=== PATIENT | female | born 1965 | race Caucasian/White ===

== ENCOUNTER 2021-03-20 16:14 | Inpatient (IN) | payer BC, SELFPAY ==
[2021-03-20] VITALS (11 sets, daily range): BP systolic 109–162; BP diastolic 63–99; PULSE 85–103; RESP 14–18; TEMP 37.2–37.8; O2SAT 93–99; BMI 41.0
--- NOTE | 2021-03-20 17:15 | ED_ITS ---
HPI - Skin/Abscess/Foreign Bdy General Chief complaint: Skin/Abscess/Foreign Body Stated complaint: RT SIDE SWELLING LYMPH NODES BREAST CANCER FEVER Time Seen by Provider: 03/20/21 17:15 Source: patient Mode of arrival: Ambulatory Limitations: no limitations History of Present Illness HPI narrative: Patient is a 55-year-old female. Has a history of breast cancer. Is in remission and is not currently receiving any treatment. She has had a bilateral mastectomy hand axillary lymph node biopsy. She comes emergency department today for complaints of swelling in her right arm, redness and tenderness to her forearm. Also having subjective fevers. No chest pain. No shortness of breath. No specific trauma. Related Data Allergies Allergy/AdvReac Type Severity Reaction Status Date / Time latex AdvReac Verified 03/20/21 17:29 Review of Systems Constitutional Constitutional: Reports fever(s) and Reports headache(s) ENT Ears, Nose, Mouth, and Throat: Reports headache(s) Cardiovascular Cardiovascular: Reports system reviewed and no additional complaints, except as documented Respiratory Respiratory: Reports system reviewed and no additional complaints, except as documented Gastrointestinal Gastrointestinal: Reports system reviewed and no additional complaints, except as documented Musculoskeletal Musculoskeletal: Reports system reviewed and no additional complaints, except as documented and Reports as per HPI Integumentary/Breasts Skin/Breast: Reports system reviewed and no additional complaints, except as documented and Reports as per HPI Neurologic Neurologic: Reports system reviewed and no additional complaints, except as documented and Reports headache(s) Psychiatric Psychiatric: Reports system reviewed and no additional complaints, except as documented Hematologic/Lymphatic On Anticoagulants: No Allergic/Immunologic Allergic/Immunologic: Reports system reviewed and no additional complaints, except as documented Patient History Medical History Breast cancer alcohol intake frequency: holidays/special occasions only Substance Use Type: marijuana Exam Initial Vital Signs Initial Vital Signs: Vital Signs Temperature 100.1 F H 03/20/21 17:01 Pulse Rate 101 H 03/20/21 17:01 Respiratory Rate 14 03/20/21 17:01 Blood Pressure 129/89 03/20/21 17:01 Pulse Oximetry 99 03/20/21 17:01 Const General: cooperative, healthy appearing, comfortable and well developed Limitations: mental status not altered HENMT Head: normal to inspection and normocephalic Chest Other: Breast implants in place. Resp Effort & Inspection: normal respiratory effort Auscultation: clear to auscultation bilaterally Cardio Rate: regular rate Rhythm: regular rhythm GI Inspection: non-distended Palpation: soft and No tender Skin Other: Patient with a large area of redness and warmth to the right forearm on the volar aspect. Located between the wrist and the elbow. Also with streaking going up the inside of the right bicep. Also warmth. No vesicles seen. 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) Stat 03/20/21 17:19 XR chest 1V Stat 03/20/21 17:24 Urinalysis and Microscopic Stat Urine Culture Stat Sodium Chloride (Normal Saline 0.9%) 1,000 mls @ 125 mls/hr IV CONT ANALIA Last Admin: 03/20/21 17:43 Dose: 125 mls/hr Documented by: JENNIFER Discontinued Medications Acetaminophen (Acetaminophen 325 Mg Tablet) 650 mg PO NOW ONE Stop: 03/20/21 18:02 Last Admin: 03/20/21 18:15 Dose: 650 mg Documented by: SIOBHAN Ceftriaxone Sodium 1,000 mg/ (Sodium Chloride) 100 mls @ 200 mls/hr IV NOW ONE Stop: 03/20/21 17:18 Last Infusion: 03/20/21 18:13 Dose: 0 mls/hr Documented by: Admin: 03/20/21 17:43 Dose: 200 mls/hr Documented by: JENNIFER Vancomycin HCl (Vancomycin) 1,000 mg in 200 mls @ 200 mls/hr IV NOW ONE Stop: 03/20/21 18:16 Last Admin: 03/20/21 18:22 Dose: 200 mls/hr Documented by: SIOBHAN Ondansetron HCl (Ondansetron 4 Mg/2 Ml Inj) 4 mg IV NOW ONE Stop: 03/20/21 18:02 Last Admin: 03/20/21 18:15 Dose: 4 mg Documented by: ATAYLOR Vital Signs Vital signs: Vital Signs - 8 hr 03/20/21 17:01 Temperature 100.1 F H Pulse Rate 101 H Respiratory Rate 14 Blood Pressure 129/89 Pulse Oximetry 99 MDM - Skin/Abscess/Foreign Bdy Lab Data Attestation: I reviewed the patient's lab results. Result diagrams: 03/20/21 16:42 03/20/21 16:42 Labs: Lab Results 03/20/21 03/20/21 03/20/21 Range/Units 16:42 16:42 16:42 WBC 11.5 H (4.5-11.0) X10^3/uL RBC 4.86 (4.0-5.2) X10^6/uL Hgb 13.9 (12.0-16.0) g/dL Hct 41.8 (36-46) % MCV 86.1 (80-100) fL MCH 28.7 (26-34) PG MCHC 33.3 (30-36) % RDW 13.2 (11.6-14.8) % Plt Count 172 (150-400) X10^3/uL Neut % (Auto) 90.9 H (50-75) % Lymph % (Auto) 4.8 L (25-40) % [place] % (Auto) 3.7 (3-14) % Eos % (Auto) 0.2 L (2-4) % Baso % (Auto) 0.4 (0-2) % Neut # (Auto) 36629 H (2114-8379) /uL Lymph # (Auto) 600 L (4365-3283) /uL [place] # (Auto) 400 (0-900) /uL Eos # (Auto) 0 (0-450) /uL Baso # (Auto) 0 (0-100) /uL Sodium 139 (137-145) mmol/L Potassium 4.2 (3.4-5.1) mmol/L Chloride 104 (98-107) mmol/L Carbon Dioxide 27 (22-32) mmol/L BUN 14 (7-17) mg/dL Creatinine 0.60 (0.52-1.04) mg/dL Estimated GFR > 60.0 (>60) mL/min BUN/Creatinine Ratio 23.3 H (6-22) Glucose 105 H (70-100) mg/dL Lactate 1.3 (0.7-2.1) mmol/L Calcium 9.5 (8.4-10.2) mg/dL Urine Color Urine Appearance Urine pH (4.5-8.0) Ur Specific [place] (1.000-1.035) Urine Protein (Negative) Urine Glucose (UA) (Negative) g/dL Urine Ketones (NEGATIVE) Urine Occult Blood (Negative) Urine Nitrate (Negative) Urine Bilirubin (NEGATIVE) Urine Urobilinogen (0.2) E.U./dL Ur Leukocyte Esterase (NEGATIVE) Urine RBC (0-5/HPF) Urine WBC (0-5/HPF) Ur Squamous Epith Cells (0-5/HPF) Urine Bacteria (None) Urine Mucus (Negative) Ur Culture Indicated? 03/20/21 Range/Units 17:24 WBC (4.5-11.0) X10^3/uL RBC (4.0-5.2) X10^6/uL Hgb (12.0-16.0) g/dL Hct (36-46) % MCV (80-100) fL MCH (26-34) PG MCHC (30-36) % RDW (11.6-14.8) % Plt Count (150-400) X10^3/uL Neut % (Auto) (50-75) % Lymph % (Auto) (25-40) % [place] % (Auto) (3-14) % Eos % (Auto) (2-4) % Baso % (Auto) (0-2) % Neut # (Auto) (0532-5552) /uL Lymph # (Auto) (8931-4144) /uL [place] # (Auto) (0-900) /uL Eos # (Auto) (0-450) /uL Baso # (Auto) (0-100) /uL Sodium (137-145) mmol/L Potassium (3.4-5.1) mmol/L Chloride (98-107) mmol/L Carbon Dioxide (22-32) mmol/L BUN (7-17) mg/dL Creatinine (0.52-1.04) mg/dL Estimated GFR (>60) mL/min BUN/Creatinine Ratio (6-22) Glucose (70-100) mg/dL Lactate (0.7-2.1) mmol/L Calcium (8.4-10.2) mg/dL Urine Color Yellow Urine Appearance Slightly cloudy Urine pH 7.0 (4.5-8.0) Ur Specific [place] 1.020 (1.000-1.035) Urine Protein Trace H (Negative) Urine Glucose (UA) Negative (Negative) g/dL Urine Ketones Negative (NEGATIVE) Urine Occult Blood 1+ H (Negative) Urine Nitrate Negative (Negative) Urine Bilirubin Negative (NEGATIVE) Urine Urobilinogen 0.2 (0.2) E.U./dL Ur Leukocyte Esterase Trace H (NEGATIVE) Urine RBC 1-5/hpf (0-5/HPF) Urine WBC 10-30/hpf H (0-5/HPF) Ur Squamous Epith Cells 0-1 /hpf (0-5/HPF) Urine Bacteria Occasional (0-1) (None) Urine Mucus 1+ H (Negative) Ur Culture Indicated? Culture not indicate Imaging Data Chest x-ray: Radiologist's Impression: [address] [address] XRay Report Signed Patient: Noemi Betts MR#: [id number] : 1965 Acct:[id number] Age/Sex: 55 / F Date of Service: 03/20/21 Loc: ED Accession Number: [id number] ?? Procedure: XR chest 1V Ordering Provider: Mookie Santiago D.O. PROCEDURE:? XR CHEST 1V ? INDICATIONS:? Eval for pneumonia ? TECHNIQUE:? One view of the chest was acquired.? ? COMPARISON:? None. ? FINDINGS:? ? Surgical changes and devices:? Bilateral axillary clips are seen. ? Lungs and pleura:? An incomplete inspiratory result is noted, causing a crowded appearance to the lung markings.? No focal infiltrates are seen.? No pneumothorax or significant pleural effusions are seen. ? ? Mediastinum:? Mediastinal contours appear normal.? Heart size is normal.? ? Bones and chest wall:? No suspicious bony lesions.? Overlying soft tissues appear unremarkable.? ? ? IMPRESSION:? ? Limited portable chest examination, without a significant cardiopulmonary abnormality identified.? ? ? Dictated by: Thierry Koehler M.D. on 03/20/2021 at 16:49 ? ? Approved by: Thierry Koehler M.D. on 03/20/2021 at 16:49?? MDM Narrative Medical decision making narrative: Patient does have tachycardia. A slight leukocytosis with a left shift. Physical exam of her right forearm consistent with cellulitis. Patient was give n antibiotics. Blood cultures obtained. Will obtain a DVT ultrasound for evaluation of potential clot however I feel this is unlikely given her presentation. I do feel given the presentation that she does need admitted for IV antibiotics. Did discuss this with the patient. She expressed understanding and agreement. Discharge Plan Departure Patient Disposition: Home Clinical Impression: Cellulitis
--- NOTE | 2021-03-20 17:17 | DI.US.S_ITS ---
PROCEDURE: US PERIPH VENOUS UP EXTREM RT INDICATIONS: EDEMA TECHNIQUE: Real-time imaging, as well as color and pulse Doppler interrogation, was performed of the right upper extremity deep veins from the inferior neck to the antecubital fossa. COMPARISON: None. FINDINGS: The internal jugular vein, visualized portions of the subclavian vein, axillary, and brachial veins are free of intraluminal thrombus. Where physically possible, the veins are normally compressible. Color and pulse Doppler demonstrate normal intraluminal flow, with expected phasicity and pulsatility. Additional scanning of the basilic veins of the superficial system demonstrate normal compressibility, without thrombus. The cephalic vein was not identified. IMPRESSION: No DVT in the right upper extremity. Dictated by: Agustina Marinelli M.D. on 03/20/2021 at 20:09 Approved by: Agustina Marinelli M.D. on 03/20/2021 at 20:10
--- NOTE | 2021-03-20 17:19 | DI.RAD.S_ITS ---
PROCEDURE: XR CHEST 1V INDICATIONS: Eval for pneumonia TECHNIQUE: One view of the chest was acquired. COMPARISON: None. FINDINGS: Surgical changes and devices: Bilateral axillary clips are seen. Lungs and pleura: An incomplete inspiratory result is noted, causing a crowded appearance to the lung markings. No focal infiltrates are seen. No pneumothorax or significant pleural effusions are seen. Mediastinum: Mediastinal contours appear normal. Heart size is normal. Bones and chest wall: No suspicious bony lesions. Overlying soft tissues appear unremarkable. IMPRESSION: Limited portable chest examination, without a significant cardiopulmonary abnormality identified. Dictated by: Thierry Koehler M.D. on 03/20/2021 at 16:49 Approved by: Thierry Koehler M.D. on 03/20/2021 at 16:49
[2021-03-20 17:32] LABS: Lactate (Lactic Acid) 1.3 mmol/L (0.7-2.1)
[2021-03-20 17:33] LABS: BUN Creatinine Ratio 23.3 (6-22); Blood Urea Nitrogen 14 mg/dL (7-17); Calcium 9.5 mg/dL (8.4-10.2); Carbon Dioxide 27 mmol/L (22-32); Chloride 104 mmol/L (98-107); Estimated Glomerular Filt Rate > 60.0 mL/min (>60); Glucose 105 mg/dL (70-100); HEMOLYSIS < 15 (0-50); Potassium 4.2 mmol/L (3.4-5.1); Sodium 139 mmol/L (137-145)
[2021-03-20 17:35] LABS: Add Manual Diff / Slide Review NO; Basophils Absolute Auto 0 /uL (0-100); Basophils Percent Auto 0.4 % (0-2); Eosinophils Absolute Auto 0 /uL (0-450); Eosinophils Percent Auto 0.2 % (2-4); Hematocrit 41.8 % (36-46); Hemoglobin 13.9 g/dL (12.0-16.0); Lymphocytes Absolute Auto 600 /uL (1100-4500); Lymphocytes Percent Auto 4.8 % (25-40); Mean Corpuscular HGB Conc 33.3 % (30-36); Mean Corpuscular Hemoglobin 28.7 PG (26-34); Mean Corpuscular Volume 86.1 fL (80-100); Monocytes Absolute Auto 400 /uL (0-900); Monocytes Percent Auto 3.7 % (3-14); Neutrophils Absolute Auto 10500 /uL (1500-7000); Neutrophils Percent Auto 90.9 % (50-75); Platelet Count 172 X10^3/uL (150-400); Red Blood Cell Count 4.86 X10^6/uL (4.0-5.2); Red Cell Distribution Width 13.2 % (11.6-14.8); White Blood Cell Count 11.5 X10^3/uL (4.5-11.0)
[2021-03-20 17:36] LABS: Bilirubin Urine UA NEGATIVE (NEGATIVE); Color Urine UA YELLOW; Glucose Urine UA NEGATIVE (Negative); Ketones Urine UA NEGATIVE (NEGATIVE); Leukocyte Esterase Urine UA TRACE (NEGATIVE); Nitrite Urine UA NEGATIVE (Negative); Occult Blood Urine UA 1+ (Negative); Protein Urine UA TRACE (Negative); Urobilinogen Urine UA 0.2 E.U./dL (0.2)
[2021-03-20 17:37] LABS: Appearance Urine UA Slightly Cloudy
[2021-03-20 17:42] LABS: RBC Urine 1-5/HPF (0-5/HPF); WBC Urine 10-30/HPF (0-5/HPF)
[2021-03-20 17:43] LABS: Bacteria Urine Occasional (0-1); Mucus Urine 1+ (Negative); Squamous Epithelial Cell Urine 0-1 /HPF (0-5/HPF)
[2021-03-20] MEDS: cefTRIAXone 1,000 MG in SODIUM CHLORIDE 0.9% 100 ML 200 ML IV (17:43)
[2021-03-20] MEDS: SODIUM CHLORIDE 0.9% 1,000 ML 125 ML IV (17:43)
[2021-03-20] MEDS: ACETAMINOPHEN 325 MG TABLET 650 MG PO (18:15)
[2021-03-20] MEDS: ONDANSETRON 4 MG/2 ML INJ IV (18:15)
[2021-03-20] MEDS: VANCOMYCIN 1,000 MG/200 ML PIGGYBACK 200 MG IV (18:22)
[2021-03-20 20:02] LABS: COVID19 - ADMIT (NP swab/PCR) Negative (Negative)
[2021-03-20 21:13] LABS: Thyroid Stimulating Hormone 1.74 uIU/mL (0.47-4.68)
[2021-03-20] MEDS: CODEINE/ACETAMINOPHEN 30/300 TABLET 1 TAB PO (22:12)
--- NOTE | 2021-03-20 23:57 | P.HP_ITS ---
History of Present Illness History of Present Illness Date Patient Seen: 03/20/21 Time Patient Seen: 21:00 Chief complaint: Right-sided lymphedema and probable cellulitis Narrative: Noemi Betts is a 55-year-old female with a history of breast cancer diagnosed in 2012 currently in remission, presents today with swelling and pain that started from her wrist moving upwards to her right axilla. She has been doing preventative practices on her right arm including elevating it, maintaining compression on it and this is the 1st time she has ever developed swelling and and pain in that right arm. She has a pretty extensive medical history including the breast cancer which was diagnosed in 2012, had radiation and chemo 2014, and and sustained a CVA while undergoing some sort of a procedure in 2014, has Crohn's and diverticulitis and thyroid disease and history of thyroidectomy. She also has a history of sleeve gastrectomy and a total hysterectomy. She states that she is currently having really bad headache which is relieved a little bit through distraction but is constantly there, she has been febrile throughout the day, she has been very nauseous which is relieved by Zofran, she denies shortness of breath, dysuria, diarrhea or constipation. The patient is from [place] while her is doing a clinical rotation and physical therapy here at [facility]. Chest x-ray and upper extremity vascular ultrasound were both negative for any acute process. Patient is mildly febrile at 99 and her T-max was 100.1? on admission, blood pressure 109/69, heart rate 87, respiratory rate 18, oxygen saturation of 97% on room air, she weighs 105 kg with a BMI of 41. She has a mildly elevated white count at 11.5, rest her for CBC is within normal limits, she does have a left shift of 10,500, chemistries are essentially within normal limits she has a mildly elevated glucose of 105, lactate was normal, TSH was 1.74, UA was negative for UTI, and COVID-19 PCR was negative. Patient History Medical History (Updated 03/21/21 @ 00:13 by MONAE Singleton) Breast cancer History of breast cancer History of CVA (cerebrovascular accident) History of DVT (deep vein thrombosis) History of miscarriage History of thyroid nodule Hypothyroidism Surgical History (Updated 03/21/21 @ 00:07 by MONAE Singleton) History of bilateral mastectomy History of cholecystectomy History of hysterectomy History of reconstruction of both breasts History of sleeve gastrectomy Comment: Family & Social History Family History (Updated 03/21/21 @ 00:08 by MONAE Singleton) Mother Crohn's disease Father Cardiac arrhythmia 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 [employer] Safety & Behavioral: Feels Safe in Current Yes Environment Been Physically Hurt or No Threatened By a Person Tobacco & Substance use: alcohol intake frequency holiday/special occasion Substance Use Type marijuana Meds Home Medications and Allergies Allergies Allergy/AdvReac Type Severity Reaction Status Date / Time latex AdvReac Verified 03/20/21 20:30 Review of Systems Review of Systems ROS: Yes All systems reviewed with the patient and are negative except as otherwise documented Exam Vital Signs (past 8 hours): - 03/20/21 17:01 03/20/21 18:28 03/20/21 20:00 Temperature 100.1 F H Pulse Rate 103 H 94 H 100 H Respiratory Rate 16 18 Blood Pressure 162/99 H 125/69 109/69 Pulse Oximetry 99 98 95 03/20/21 20:45 03/20/21 21:00 03/20/21 21:30 Temperature Pulse Rate 95 H 96 H 96 H Respiratory Rate Blood Pressure Pulse Oximetry 93 96 95 03/20/21 22:18 03/20/21 22:32 03/20/21 23:00 Temperature 99 F Pulse Rate 85 85 87 Respiratory Rate Blood Pressure Pulse Oximetry 97 97 Oxygen Delivery Method Room Air Narrative Exam Narrative: Gen: Alert, oriented, morbidly obese 55 y.o. female, appears uncomfortable HEENT: normocephalic, atraumatic, conjunctiva clear, sclera non-icteric, oral mucosa pink and moist Neck: supple, full ROM, no JVD, trachea is midline Resp: Lungs CTA, non-labored breathing CV: RRR, no murmur or rubs Abd: soft, non-tender, normoactive BTs Skin: Light pink induration extending from right axilla to wrist Neuro: Alert and oriented X 4 w/no focal deficits. Speech clear and coherent. Extremities: moves all 4 extremities, is ambulatory, negative Marlon?s sign Psyche: Very pleasant, normal mood and affect. Objective Labs Result Diagrams: 03/20/21 16:42 03/20/21 16:42 Labs: Laboratory Results - last 24 hr 03/20/21 03/20/21 03/20/21 16:42 16:42 16:42 WBC 11.5 H RBC 4.86 Hgb 13.9 Hct 41.8 MCV 86.1 MCH 28.7 MCHC 33.3 RDW 13.2 Plt Count 172 Neut % (Auto) 90.9 H Lymph % (Auto) 4.8 L [place] % (Auto) 3.7 Eos % (Auto) 0.2 L Baso % (Auto) 0.4 Neut # (Auto) 82062 H Lymph # (Auto) 600 L [place] # (Auto) 400 Eos # (Auto) 0 Baso # (Auto) 0 Sodium 139 Potassium 4.2 Chloride 104 Carbon Dioxide 27 BUN 14 Creatinine 0.60 Estimated GFR > 60.0 BUN/Creatinine Ratio 23.3 H Glucose 105 H Lactate 1.3 Calcium 9.5 TSH Urine Color Urine Appearance Urine pH Ur Specific [place] Urine Protein Urine Glucose (UA) Urine Ketones Urine Occult Blood Urine Nitrate Urine Bilirubin Urine Urobilinogen Ur Leukocyte Esterase Urine RBC Urine WBC Ur Squamous Epith Cells Urine Bacteria Urine Mucus Ur Culture Indicated? SARS-CoV-2 (PCR) 03/20/21 03/20/21 03/20/21 16:42 17:24 18:30 WBC RBC Hgb Hct MCV MCH MCHC RDW Plt Count Neut % (Auto) Lymph % (Auto) [place] % (Auto) Eos % (Auto) Baso % (Auto) Neut # (Auto) Lymph # (Auto) [place] # (Auto) Eos # (Auto) Baso # (Auto) Sodium Potassium Chloride Carbon Dioxide BUN Creatinine Estimated GFR BUN/Creatinine Ratio Glucose Lactate Calcium TSH 1.74 Urine Color Yellow Urine Appearance Slightly cloudy Urine pH 7.0 Ur Specific [place] 1.020 Urine Protein Trace H Urine Glucose (UA) Negative Urine Ketones Negative Urine Occult Blood 1+ H Urine Nitrate Negative Urine Bilirubin Negative Urine Urobilinogen 0.2 Ur Leukocyte Esterase Trace H Urine RBC 1-5/hpf Urine WBC 10-30/hpf H Ur Squamous Epith Cells 0-1 /hpf Urine Bacteria Occasional (0-1) Urine Mucus 1+ H Ur Culture Indicated? Culture not indicate SARS-CoV-2 (PCR) Negative Assessment & Plan Assessment & Plan narrative: Roseanne Betts will be admitted for further management and treatment of a right arm cellulitis and lymphedema. 1. 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 Hypothyroidism, chronic * Continue home dose of levothyroxine 25 mcg p.o. daily 3. Crohn's disease, chronic * Continue colestipol 1 g daily * She takes dicyclomine 10 mg as needed for diarrhea 4. Morbid obesity with a BMI of 41.0, chronic * Patient is put on a heart healthy diet and if desired may discuss with dietary as to strategies to lose weight. VTE Prophylaxis: Wells risk score 1.5 Enoxaparin 40 mg subQ once daily Patient is admitted to the inpatient service due to the severity of disease, risks of further disease progression and this stay is expected to exceed 2 midnights. FEN: IV fluids: NS at 100ml/hour, diet: heart healthy, labs: CBC, C/BMP, liver enzymes, Mag, PT/INR Consultants None Consider referral to wound care clinic if an appointment is available prior to their return to [place] in early March Dispo: Probable discharge to home Code status: DNR/DNI as discussed with the patient who identifies her , Thang her surrogate and POA. [X] I have utilized all available immediate resources to obtain, update, or review of the patient's current medications COVID-19 COVID-19 status: Negative Result date/Date tested (Pos, Neg/Pending): 03/20/21 Time Spent With Patient Critical Care time: I spent a total of [] minutes of critical care time on this patient's care today; this time is exclusive of procedural time. Scores Wells' Criteria for PE Clinical signs and symptoms of DVT: No PE is #1 Dx or equally likely: No Heart rate > 100: No Immobilization at least 3 days or surg in previous 4 weeks: No History of PE or DVT: Yes Hemoptysis: No Malignancy w/Treatment within 6 months or palliative: No Wells' PE Score total: 1.5 Quality VTE Deep Vein Thrombosis/Pulmonary Embolism Present on Admission: No MIPS - Admit I confirm the patient?s Advance Care Plan is present, Code status is documented, Surrogate decision maker is in patient?s record [If Yes, STOP here]: Yes MIPS - DC The patient has current or prior documentation of left ventricular ejection fraction (LVEF) less than 40%, or moderate or severely depressed left arnold tricular systolic function.: No
[2021-03-21] VITALS (27 sets, daily range): BP systolic 99–132; BP diastolic 63–73; PULSE 69–94; RESP 14–18; TEMP 36.6–38; O2SAT 91–99; BMI 40.0
[2021-03-21] MEDS: IBUPROFEN 400 MG TABLET PO ×2 (02:18→10:33)
[2021-03-21] MEDS: ONDANSETRON 4 MG/2 ML INJ IV (02:28)
--- NOTE | 2021-03-21 02:35 | PC.NURSE ---
Checked in on patient. states she is having immense amount of pain in her R arm and R breast area and 10/10 headache. R forearm appears more swollen than previously with streaking up the bicep area, hot to touch. Pt shivering. Temp 100.4. Breast area appears normal in color however pt states the majority of pain is in the R axilla which she states never happens bc I dont have any nerves in that area--something is wrong Pt given 400mg PO Ibuprofen and 5/325mg hydrocodone as ordered PRN for fever and pain. Also requesting zofran for nausea, given. HR remains 84-90 and regular to palp, BP 107/67 which is baseline for her. Will reassess pain in 30 min.
--- NOTE | 2021-03-21 03:06 | PC.NURSE ---
Pt decided she did not want to take the hydrocodone tablet due to her nausea.
--- NOTE | 2021-03-21 03:14 | PC.NURSE ---
no improvement in pain. Pt tearful. call placed to DAWIT Jacques. awaiting further orders
--- NOTE | 2021-03-21 03:23 | DI.CT.S_ITS ---
PROCEDURE: CT UE RT W CON INDICATIONS: pain/swelling TECHNIQUE: After the administration of intravenous contrast, 1 mm axial sections acquired of the right upper extremity, with coronal and sagittal reformats. COMPARISON: None. FINDINGS: Image quality: Excellent. Bones: No acute fracture or dislocation. No cortical destruction is seen to suggest osteomyelitis. A chronic ununited fracture of the ulnar styloid is noted. Soft tissues: Surgical clips are seen in the right axilla. There is mild skin thickening and subcutaneous edema at the anterior medial aspect of the upper arm and throughout the volar aspect of the forearm. No discrete fluid collection or abscess is seen. No involvement of the deeper intermuscular fascial layers is seen. There is no soft tissue gas. No definite nonenhancing vascular structure is seen to suggest thrombosis. The articular cartilages, ligaments, and tendons are not well evaluated with CT. The musculature of the upper extremity is normal in bulk. IMPRESSION: Nonspecific skin thickening and subcutaneous edema in the right upper extremity. Recommend correlation for cellulitis. No discrete fluid collection or abscess. No involvement of deeper muscular or osseous structures is seen. There is no significant discrepancy when compared to the overnight preliminary report. Dictated by: Santiago Tenorio M.D. on 03/21/2021 at 8:18 Approved by: Santiago Tenorio M.D. on 03/21/2021 at 8:24
[2021-03-21] MEDS: METOCLOPRAMIDE 10 MG in SODIUM CHLORIDE 0.9% 50 ML 208 ML IV (03:52)
[2021-03-21] MEDS: diphenhydrAMINE 50 MG/ML VIAL 25 MG IV (03:54)
[2021-03-21] MEDS: SODIUM CHLORIDE 0.9% 500 ML 125 ML IV (04:04)
[2021-03-21] MEDS: HYDROMORPHONE 0.5 MG INJ IV ×2 (04:04→20:51)
[2021-03-21 05:09] LABS: Add Manual Diff / Slide Review NO; Basophils Absolute Auto 0 /uL (0-100); Basophils Percent Auto 0.3 % (0-2); Eosinophils Absolute Auto 0 /uL (0-450); Eosinophils Percent Auto 0.1 % (2-4); Hematocrit 35.9 % (36-46); Hemoglobin 12.1 g/dL (12.0-16.0); Lymphocytes Absolute Auto 500 /uL (1100-4500); Mean Corpuscular HGB Conc 33.6 % (30-36); Mean Corpuscular Hemoglobin 28.9 PG (26-34); Mean Corpuscular Volume 86.1 fL (80-100); Monocytes Absolute Auto 400 /uL (0-900); Monocytes Percent Auto 4.7 % (3-14); Neutrophils Absolute Auto 6700 /uL (1500-7000); Neutrophils Percent Auto 88.9 % (50-75); Platelet Count 167 X10^3/uL (150-400); Red Blood Cell Count 4.17 X10^6/uL (4.0-5.2); Red Cell Distribution Width 13.5 % (11.6-14.8); White Blood Cell Count 7.5 X10^3/uL (4.5-11.0)
[2021-03-21 05:14] LABS: BUN Creatinine Ratio 17.2 (6-22); Blood Urea Nitrogen 10 mg/dL (7-17); Carbon Dioxide 26 mmol/L (22-32); Chloride 105 mmol/L (98-107); Estimated Glomerular Filt Rate > 60.0 mL/min (>60); Glucose 116 mg/dL (70-100); HEMOLYSIS < 15 (0-50); Potassium 3.8 mmol/L (3.4-5.1); Sodium 136 mmol/L (137-145)
[2021-03-21] MEDS: PANTOPRAZOLE DR 20 MG TABLET PO (06:44)
[2021-03-21] MEDS: LEVOTHYROXINE 25 MCG TABLET PO (06:44)
[2021-03-21] MEDS: DOCUSATE 100 MG CAPSULE PO ×2 (09:17→20:51)
[2021-03-21] MEDS: ENOXAPARIN 40 MG/0.4 ML SYRINGE SUBCUT ×2 (09:17→20:50)
[2021-03-21] MEDS: COLESTIPOL 1 GM TABLET PO (10:41)
--- NOTE | 2021-03-21 13:19 | PM.PN.1 ---
Subjective Subjective Date Patient Seen: 03/21/21 Interval history: PATIENT REPORTED SOME IMPROVEMENT TO THE SWELLING AND REDNESS TO THE RIGHT UPPER EXTREMITY DENIES ANY INSECT BITE OR ANY INJURIES DENIES ANY FEVER OR CHILLS NO INCREASE IN SHORTNESS OF BREATH OR DYSPNEA ON EXERTION NO OTHER COMPLAINTS Exam Vital Signs (past 8 hours): - 03/21/21 05:30 03/21/21 06:00 03/21/21 06:30 Temperature Pulse Rate 79 76 78 Respiratory Rate Blood Pressure Pulse Oximetry 92 91 93 03/21/21 07:00 03/21/21 07:30 03/21/21 08:00 Temperature Pulse Rate 72 72 71 Respiratory Rate Blood Pressure Pulse Oximetry 94 92 95 03/21/21 08:30 03/21/21 09:00 03/21/21 09:30 Temperature Pulse Rate 70 70 69 Respiratory Rate Blood Pressure Pulse Oximetry 95 95 99 03/21/21 10:30 Temperature 97.8 F Pulse Rate 77 Respiratory Rate 18 Blood Pressure 99/68 Pulse Oximetry 97 Oxygen Delivery Method Room Air Narrative Exam Narrative: NO ACUTE DISTRESS. PATIENT IS ALERT ORIENTED X3. WELL-NOURISHED VITAL SIGNS STABLE HEAD ATRAUMATIC NORMOCEPHALIC NECK : SUPPLE WITHOUT ADENOPATHY NO CAROTID BRUITS EYE: EOMI, PERRLA, NORMAL CONJUNCTIVA; NO JAUNDICE CHEST: REGULAR RATE. NO RUBS. PMI IS NON DISPLACED. NO MURMURS; NORMAL S1-S2 PULMONARY: DECREASED BS OVER THE BASES. MILD BIBASILAR CRACKLES NOTED; NO INCREASED DULLNESS TO PERCUSSION ABDOMEN: SOFT. NONTENDER. NONDISTENDED. BOWEL SOUNDS ARE PRESENT IN ALL 4 QUADRANTS. NO MASS. EXTREMITIES: NO EDEMA.. NO CYANOSIS CLUBBING NOTED. NEURO: CRANIAL NERVES 2-12 GROSSLY INTACT. NO FOCAL NEUROLOGICAL DEFICIT NOTED. SENSATION IS INTACT TO ALL EXTREMITIES MSK: NORMAL RANGE OF MOTION FOR AGE. NO JOINT EFFUSION. SKIN: SOME REDNESS APPRECIATED TO THE RIGHT UPPER EXTREMITY. [place] ALSO APPRECIATED. NO OPEN LESIONS. NO DRAINAGE. NO ABSCESS. : NORMAL EXTERNAL GENITALIA. PSYCH : APPROPRIATE MOOD AND AFFECT. ALERT AWAKE ORIENTED X3 Objective Labs Result Diagrams: 03/21/21 04:40 03/21/21 04:40 Labs: Laboratory Results - last 24 hr 03/20/21 03/20/21 03/20/21 16:42 16:42 16:42 WBC 11.5 H RBC 4.86 Hgb 13.9 Hct 41.8 MCV 86.1 MCH 28.7 MCHC 33.3 RDW 13.2 Plt Count 172 Neut % (Auto) 90.9 H Lymph % (Auto) 4.8 L [place] % (Auto) 3.7 Eos % (Auto) 0.2 L Baso % (Auto) 0.4 Neut # (Auto) 74843 H Lymph # (Auto) 600 L [place] # (Auto) 400 Eos # (Auto) 0 Baso # (Auto) 0 Sodium 139 Potassium 4.2 Chloride 104 Carbon Dioxide 27 BUN 14 Creatinine 0.60 Estimated GFR > 60.0 BUN/Creatinine Ratio 23.3 H Glucose 105 H Lactate 1.3 Calcium 9.5 TSH Urine Color Urine Appearance Urine pH Ur Specific [place] Urine Protein Urine Glucose (UA) Urine Ketones Urine Occult Blood Urine Nitrate Urine Bilirubin Urine Urobilinogen Ur Leukocyte Esterase Urine RBC Urine WBC Ur Squamous Epith Cells Urine Bacteria Urine Mucus Ur Culture Indicated? SARS-CoV-2 (PCR) 03/20/21 03/20/21 03/20/21 16:42 17:24 18:30 WBC RBC Hgb Hct MCV MCH MCHC RDW Plt Count Neut % (Auto) Lymph % (Auto) [place] % (Auto) Eos % (Auto) Baso % (Auto) Neut # (Auto) Lymph # (Auto) [place] # (Auto) Eos # (Auto) Baso # (Auto) Sodium Potassium Chloride Carbon Dioxide BUN Creatinine Estimated GFR BUN/Creatinine Ratio Glucose Lactate Calcium TSH 1.74 Urine Color Yellow Urine Appearance Slightly cloudy Urine pH 7.0 Ur Specific [place] 1.020 Urine Protein Trace H Urine Glucose (UA) Negative Urine Ketones Negative Urine Occult Blood 1+ H Urine Nitrate Negative Urine Bilirubin Negative Urine Urobilinogen 0.2 Ur Leukocyte Esterase Trace H Urine RBC 1-5/hpf Urine WBC 10-30/hpf H Ur Squamous Epith Cells 0-1 /hpf Urine Bacteria Occasional (0-1) Urine Mucus 1+ H Ur Culture Indicated? Culture not indicate SARS-CoV-2 (PCR) Negative 03/21/21 03/21/21 04:40 04:40 WBC 7.5 RBC 4.17 Hgb 12.1 Hct 35.9 L MCV 86.1 MCH 28.9 MCHC 33.6 RDW 13.5 Plt Count 167 Neut % (Auto) 88.9 H Lymph % (Auto) 6.0 L [place] % (Auto) 4.7 Eos % (Auto) 0.1 L Baso % (Auto) 0.3 Neut # (Auto) 6700 Lymph # (Auto) 500 L [place] # (Auto) 400 Eos # (Auto) 0 Baso # (Auto) 0 Sodium 136 L Potassium 3.8 Chloride 105 Carbon Dioxide 26 BUN 10 Creatinine 0.58 Estimated GFR > 60.0 BUN/Creatinine Ratio 17.2 Glucose 116 H Lactate Calcium 8.0 L TSH Urine Color Urine Appearance Urine pH Ur Specific [place] Urine Protein Urine Glucose (UA) Urine Ketones Urine Occult Blood Urine Nitrate Urine Bilirubin Urine Urobilinogen Ur Leukocyte Esterase Urine RBC Urine WBC Ur Squamous Epith Cells Urine Bacteria Urine Mucus Ur Culture Indicated? SARS-CoV-2 (PCR) PFSH Medical History (Updated 03/21/21 @ 00:13 by MONAE Singleton) Breast cancer History of breast cancer History of CVA (cerebrovascular accident) History of DVT (deep vein thrombosis) History of miscarriage History of thyroid nodule Hypothyroidism Surgical History (Updated 03/21/21 @ 00:07 by MONAE Singleton) History of bilateral mastectomy History of cholecystectomy History of hysterectomy History of reconstruction of both breasts History of sleeve gastrectomy Family History (Updated 03/21/21 @ 00:08 by MONAE Singleton) Mother Crohn's disease Father Cardiac arrhythmia Assessment & Plan Assessment & Plan narrative: PROBLEM LIST RIGHT UPPER ARM CELLULITIS VERSUS DERMATITIS. CAUSE IS UNCLEAR LEUKOCYTOSIS. RESOLVED HYPERNATREMIA. MILD CROHN DISEASE PER HISTORY OBESITY. START CHANGES WILL BE RECOMMENDED ON DISCHARGE PLAN PATIENT WILL BE STARTED ON CLINDAMYCIN CONTINUE ROCEPHIN FOR NOW STARTED ON ACIDOPHILUS WELL MONITOR FOR ANY SIGN OF COMPLICATION WHILE ON ANTIBIOTIC THERAPY INCENTIVE SPIROMETER WILL BE ORDERED FOR PATIENT TO USE WHILE AWAKE PATIENT TO BE ELEVATED WITH EACH MEAL GI PROPHYLAXIS WITH PEPCID AND CARAFATE. AVOID PROTONIX ADDITIONAL MANAGEMENT PER CLINICAL COURSE LIKELY DISCHARGE WITHIN NEXT 2-3 DAYS Time Spent With Patient Critical Care time: I spent a total of [] minutes of critical care time on this patient's care today; this time is exclusive of procedural time. Quality VTE Deep Vein Thrombosis/Pulmonary Embolism Present on Admission: No
[2021-03-21] MEDS: CODEINE/ACETAMINOPHEN 30/300 TABLET 1 TAB PO (13:25)
[2021-03-21] MEDS: FAMOTIDINE 20 MG TABLET PO ×2 (14:38→20:52)
[2021-03-21] MEDS: CLINDAMYCIN 150 MG CAPSULE 300 MG PO ×2 (14:38→22:36)
[2021-03-21] MEDS: cefTRIAXone 1,000 MG in SODIUM CHLORIDE 0.9% 100 ML 200 ML IV (17:54)
[2021-03-21] MEDS: LACTOBACILLUS ACIDOPHILUS TABLET 1 EACH PO (17:55)
[2021-03-21] MEDS: SUCRALFATE 1 GM TABLET PO (17:55)
[2021-03-21] MEDS: SODIUM CHLORIDE 0.9% 1,000 ML 100 ML IV (17:57)
[2021-03-21] MEDS: METOCLOPRAMIDE 10 MG/2 ML INJ 5 MG IV (20:51)
[2021-03-21] MEDS: SODIUM CHLORIDE 0.9% FLUSH 10 ML IV (20:52)
[2021-03-21] MEDS: SUCRALFATE 1 GM/10 ML ORAL SUSP PO (22:37)
[2021-03-22] MEDS: SODIUM CHLORIDE 0.9% FLUSH 10 ML IV ×3 (02:46→10:48)
[2021-03-22] MEDS: METOCLOPRAMIDE 10 MG/2 ML INJ 5 MG IV ×2 (02:46→10:45)
[2021-03-22] MEDS: HYDROMORPHONE 0.5 MG INJ IV (02:46)
--- NOTE | 2021-03-22 04:10 | PC.NURSE ---
Late entry: At 1919, patient was asking for IV dilaudid for pain control, as patient stated the Tylenol #3 and [place] do no work for her. Patient was also requesting something other than Zofran for the nausea since that did not seem to help with the last dose. RN Chhaya called provider before leaving shift and an order was placed for 0.5mg Dilaudid IV q4hr and 5mg Reglan IV q6hr. Patient was given both medications at 2050 which seemed to help. Upon Assessment of the R arm, the redness had increased in some areas outside of the line, this RN marked the areas with a black dotted line and applied ice to the arm along with elevation. At recheck, the redness has returned below the original line. Will monitor and notify provider as needed.
[2021-03-22 04:21] VITALS: BP 111/65; PULSE 77; RESP 16; TEMP 36.9; O2SAT 94
[2021-03-22] MEDS: CLINDAMYCIN 150 MG CAPSULE 300 MG PO ×2 (05:45→13:11)
[2021-03-22] MEDS: LEVOTHYROXINE 25 MCG TABLET PO (05:46)
[2021-03-22 06:07] LABS: Add Manual Diff / Slide Review NO; Basophils Absolute Auto 0 /uL (0-100); Basophils Percent Auto 0.3 % (0-2); Eosinophils Absolute Auto 100 /uL (0-450); Eosinophils Percent Auto 1.5 % (2-4); Hematocrit 35.8 % (36-46); Hemoglobin 12.1 g/dL (12.0-16.0); Lymphocytes Absolute Auto 900 /uL (1100-4500); Mean Corpuscular HGB Conc 33.8 % (30-36); Mean Corpuscular Hemoglobin 28.9 PG (26-34); Mean Corpuscular Volume 85.4 fL (80-100); Monocytes Absolute Auto 400 /uL (0-900); Monocytes Percent Auto 6.4 % (3-14); Neutrophils Absolute Auto 4400 /uL (1500-7000); Neutrophils Percent Auto 76.8 % (50-75); Platelet Count 156 X10^3/uL (150-400); Red Cell Distribution Width 13.3 % (11.6-14.8); White Blood Cell Count 5.7 X10^3/uL (4.5-11.0)
[2021-03-22 06:16] LABS: BUN Creatinine Ratio 14.5 (6-22); Blood Urea Nitrogen 8 mg/dL (7-17); Calcium 8.2 mg/dL (8.4-10.2); Carbon Dioxide 26 mmol/L (22-32); Chloride 105 mmol/L (98-107); Estimated Glomerular Filt Rate > 60.0 mL/min (>60); Glucose 101 mg/dL (70-100); HEMOLYSIS < 15 (0-50); Potassium 4.1 mmol/L (3.4-5.1); Sodium 136 mmol/L (137-145)
[2021-03-22] MEDS: FAMOTIDINE 20 MG TABLET PO (08:14)
[2021-03-22] MEDS: ENOXAPARIN 40 MG/0.4 ML SYRINGE SUBCUT (08:15)
[2021-03-22] MEDS: LACTOBACILLUS ACIDOPHILUS TABLET 1 EACH PO ×2 (08:15→13:11)
[2021-03-22] MEDS: SUCRALFATE 1 GM TABLET PO ×2 (08:15→13:11)
[2021-03-22] MEDS: COLESTIPOL 1 GM TABLET PO (08:15)
[2021-03-22] MEDS: DOCUSATE 100 MG CAPSULE PO (08:15)
[2021-03-22 08:34] VITALS: BP 158/80; PULSE 71; RESP 16; TEMP 36.9; O2SAT 98
--- NOTE | 2021-03-22 08:38 | PM.DS.1 ---
History of Present Illness History of Present Illness Date Patient Seen: 03/22/21 Time Patient Seen: 08:38 Date of Onset of Symptoms: 03/20/21 Chief complaint: Right-sided lymphedema and probable cellulitis Narrative: History of Present Illness History of Present Illness Date Patient Seen:?03/20/21 Time Patient Seen:?21:00 Narrative: Noemi Betts is a 55-year-old female with a history of breast cancer diagnosed in 2012 currently in remission, presents today with swelling and pain that started from her wrist moving upwards to her right axilla.? She has been doing preventative practices on her right arm including elevating it, maintaining compression on it and this is the 1st time she has ever developed swelling and and pain in that right arm.? She has a pretty extensive medical history including the breast cancer which was diagnosed in 2012, had radiation and chemo 2014, and and sustained a CVA while undergoing some sort of a procedure in 2014, has Crohn's and diverticulitis and thyroid disease and history of thyroidectomy.? She also has a history of sleeve gastrectomy and a total hysterectomy.? She states that she is currently having really bad headache which is relieved a little bit through distraction but is constantly there, she has been febrile throughout the day, she has been very nauseous which is relieved by Zofran, she denies shortness of breath, dysuria, diarrhea or constipation.? The patient is from [place] while her is doing a clinical rotation and physical therapy here at [facility]. Chest x-ray and upper extremity vascular ultrasound were both negative for any acute process.? Patient is mildly febrile at 99 and her T-max was 100.1? on admission, blood pressure 109/69, heart rate 87, respiratory rate 18, oxygen saturation of 97% on room air, she weighs 105 kg with a BMI of 41.? She has a mildly elevated white count at 11.5, rest her for CBC is within normal limits, she does have a left shift of 10,500, chemistries are essentially within normal limits she has a mildly elevated glucose of 105, lactate was normal, TSH was 1.74, UA was negative for UTI, and COVID-19 PCR was negative.? Discharge Providers Provider Date of admission: 03/20/21 19:03 Discharge Date: 03/22/21 Primary care physician: N/A Consults: 03/22/21 08:28 Consult to Physical Therapy Evaluate & Treat Comment: Physician Instructions: Evaluate and Treat Discharge provider: Toshia Silverman DO Summary Hospital Course Discharge Diagnosis: RIGHT UPPER EXTREMITY LYMPHANGITIS. HISTORY OF BREAST CANCER WITH LYMPH NODE REMOVAL CELLULITIS OF THE RIGHT UPPER EXTREMITIES. HISTORY OF BREAST CANCER WITH LYMPH NODE REMOVAL LEUKOCYTOSIS. RESOLVED BREAST CANCER FOR HISTORY CROHN'S DISEASE PER HISTORY Hospital Course: THIS IS A PLEASANT 55-YEAR-OLD FEMALE WHO PRESENTED TO THE HOSPITAL WITH SWELLING AND REDNESS TO THE RIGHT UPPER EXTREMITY. THIS WAS SUSPECTED TO BE DUE TO CELLULITIS ASSOCIATED WITH LYMPHANGITIS PATIENT HAS HISTORY OF LYMPH NODE REMOVAL DUE TO BREAST CANCER. SHE WAS TREATED WITH ANTIBIOTICS. AT THIS TIME THE AREA IS SHOWING SIGNIFICANT IMPROVEMENT. SHE WILL BE SWITCH TO ORAL ANTIBIOTICS AND SENT HOME. SHE WILL NEED TO WEAR COMPRESSION STOCKING TO THE RIGHT UPPER EXTREMITY AT ALL TIMES DURING DAY-TO-DAY IF POSSIBLE. CT OF THE RIGHT UPPER EXTREMITY WELL ULTRASOUND REVIEWED. NO ABSCESS NOTED ON CT. ULTRASOUND WAS NEGATIVE FOR DVT. SHE NEED TO FOLLOW WITH PRIMARY CARE PHYSICIAN WITHIN 2-3 WEEKS FOR ADDITIONAL MANAGEMENT INDICATED CLINICALLY Status at Discharge Cognitive/behavioral status at discharge: oriented Functional status at discharge: independent ambulation Overall status at discharge: patient is progressing back to baseline Time Spent with Patient Time spent: Greater than 30 minutes Exam Vital Signs (past 8 hours): - 03/22/21 04:21 Temperature 98.4 F Pulse Rate 77 Respiratory Rate 16 Blood Pressure 111/65 Pulse Oximetry 94 Oxygen Delivery Method Room Air Narrative Exam Narrative: NO ACUTE DISTRESS. PATIENT IS ALERT ORIENTED X3. VITAL SIGNS STABLE HEAD ATRAUMATIC NORMOCEPHALIC NECK : SUPPLE WITHOUT ADENOPATHY NO CAROTID BRUITS EYE: EOMI, PERRLA, NORMAL CONJUNCTIVA; NO JAUNDICE CHEST: REGULAR RATE. NO RUBS. PMI IS NON DISPLACED. NO MURMURS; NORMAL S1-S2 PULMONARY: DECREASED BS OVER THE BASES. MILD BIBASILAR CRACKLES NOTED; NO INCREASED DULLNESS TO PERCUSSION ABDOMEN: SOFT. NONTENDER. NONDISTENDED. BOWEL SOUNDS ARE PRESENT IN ALL 4 QUADRANTS. NO MASS. EXTREMITIES: NO EDEMA.. NO CYANOSIS CLUBBING NOTED. SENSATION INTACT TO EXTREMITIES. NEURO: CRANIAL NERVES 2-12 GROSSLY INTACT. NO FOCAL NEUROLOGICAL DEFICIT NOTED. MSK: NORMAL RANGE OF MOTION FOR AGE. NO JOINT EFFUSION. SKIN: FAIR SKIN TURGOR. SOME REDNESS NOTED ON THE RIGHT UPPER EXTREMITY. NO OPEN LESIONS. NO DRAINAGE : NORMAL EXTERNAL GENITALIA. PSYCH : APPROPRIATE MOOD AND AFFECT. ALERT AWAKE ORIENTED X3 Objective Labs Result Diagrams: 03/22/21 05:45 03/22/21 05:45 Labs: Laboratory Results - last 24 hr 03/22/21 03/22/21 05:45 05:45 WBC 5.7 RBC 4.20 Hgb 12.1 Hct 35.8 L MCV 85.4 MCH 28.9 MCHC 33.8 RDW 13.3 Plt Count 156 Neut % (Auto) 76.8 H Lymph % (Auto) 15.0 L [place] % (Auto) 6.4 Eos % (Auto) 1.5 L Baso % (Auto) 0.3 Neut # (Auto) 4400 Lymph # (Auto) 900 L [place] # (Auto) 400 Eos # (Auto) 100 Baso # (Auto) 0 Sodium 136 L Potassium 4.1 Chloride 105 Carbon Dioxide 26 BUN 8 Creatinine 0.55 Estimated GFR > 60.0 BUN/Creatinine Ratio 14.5 Glucose 101 H Calcium 8.2 L PFSH Medical History (Updated 03/21/21 @ 00:13 by MONAE Singleton) Breast cancer History of breast cancer History of CVA (cerebrovascular accident) History of DVT (deep vein thrombosis) History of miscarriage History of thyroid nodule Hypothyroidism Surgical History (Updated 03/21/21 @ 00:07 by MONAE Singleton) History of bilateral mastectomy History of cholecystectomy History of hysterectomy History of reconstruction of both breasts History of sleeve gastrectomy Family History (Updated 03/21/21 @ 00:08 by MONAE Singleton) Mother Crohn's disease Father Cardiac arrhythmia Social History household members: spouse Smoking Status: Former smoker Discharge Plan Discharge Plan Patient Disposition: Home Nursing Discharge Comment: AFTER LUNCH PLEASE Discharge orders & Medications Prescriptions: New Bacid 1 billion cell- 250 mg Tablet 1 ea PO TIDWM Qty: 90 0RF famotidine [Pepcid AC] 20 mg Tablet 20 mg PO BID Qty: 60 0RF sucralfate 1 gram Tablet 1 gm PO ACHS Qty: 120 0RF cefdinir 300 mg capsule 300 mg PO BID Qty: 14 0RF clindamycin HCl 300 mg capsule 300 mg PO Q8H Qty: 21 0RF metronidazole 250 mg tablet 250 mg PO Q8H Qty: 30 0RF Continued hydrocodone-acetaminophen 5-325 mg tablet 1 tab PO PRN PRN (Reason: Pain (Scale Score 4-6)) 0RF levothyroxine 25 mcg tablet 25 mcg PO AC 0RF colestipol 1 gram tablet 1 g PO DAILY 0RF Label Comments: TAKE 1 TABLET BY MOUTH DAILY dicyclomine 10 mg capsule 10 mg PO QID 0RF Label Comments: TAKE 1 CAPSULE BY MOUTH FOUR TIMES DAILY Medication counseling provided by Pharmacist: No Diet/Activity/Treatments Diet: Carb-consistent/Diabetic, Low-fat and Low-cholesterol Skin/Wound/Dressing Care Report to your healthcare provider any signs of infection, such as:: chills, fever, night sweats, increased pain, unusual drainage and unusual redness Quality VTE Deep Vein Thrombosis/Pulmonary Embolism Present on Admission: No
[2021-03-22 08:43] VITALS: O2SAT 94
[2021-03-22] MEDS: IBUPROFEN 400 MG TABLET PO (10:45)
[2021-03-22 12:29] VITALS: BP 116/75; PULSE 65; RESP 16; TEMP 36; O2SAT 97
--- NOTE | 2021-03-22 13:09 | PT-IP ANOTE ---
Talked with nurse regarding pt and stated that pt is moving fine with nursing and PT eval was requested for lymphedema management. informed nurse that pt has cellulitis on her RUE where she also has her lymphedema and lymphedema management on an infected site is contraindicated at this time and lymphedema management should be address on a outpt PT basis and pt has to request from the doctor. 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 informed nurse again that no exercises to address lympedema at this time due to infection and a full outpt PT assessment should be conducted when appropriate for lymphedema should be completed to determine appropriate exercises for the pt. Nurse stated that she will talk with the doctor. Nurse informed PT after she has talked to the doctor that he ordered PT just to please the spouse since he is asking for a lymphedema exercises. Per nurse, doctor agreed no PT needs at this time and to d/c PT eval order.
--- NOTE | 2021-03-22 14:09 | CM.DANOTE ---
DCP assessment: patient is 55 yr old female who came in with rt arm cellulites. Patient now on PO abx. Patient lives with her spouse Thang in [facility]. patient is currently here with her spouse while he finishes educational training for the next three weeks. Patient and her spouse are staying with some friends here in [place] until mid March. Patient states she is Independent with all ADLs and Drives at baseline. I: [employer]BS out of state reg[place] and self pay Plan: DC home with spouse when medically stable- No DC planning needs noted at this time cm department will follow up and assist with any new DC planning needs that may arise. Caro Prater RNdistribution superintendent Discharge Planning/Care Management CM Discharge Assessment Start: 03/22/21 14:03 Freq: Status: Active Protocol: Document 03/22/21 14:03 (Rec: 03/22/21 14:09 [id number]) Discharge Planning Assessment Assigned Judicial Reporter Caro Prater RNwatch adjuster DPOA/Assigned Designee Name Thang Betts (spouse) Contact Information [phone] Advance Directives? Yes Advance Directives on File No History Provided By Patient Prior Living Arrangements House Household Members spouse Type of transporation used prior to Drives own vehicle admit Independent with ADL's Yes Is patient alert and oriented? Yes Caregiver for Another Yes Barriers to Discharge No Discharge Plan Home Referrals Initiated None needed Whiteboard Updated in Patient Room with Yes name and ext. # of Judicial Reporter Review Status In Process Next Review Type Continued Stay Review
--- NOTE | 2021-03-22 15:14 | PC.NURSE ---
Discharge education provided. Pt verbalized understanding of all instructions. IV removed. Pt dressed. Escorted off unit via w/c to private vehicle. Pt left in stable condition with all personal belongings.
== END 2021-03-22 14:00 | disposition home or self-care (01) | DRG 815 ==
LOC: ED 18:40 → AC 19:04
PROVIDERS: Nurse Practitioner Family; Admitting Provider Internal Medicine; Emergency Provider Emergency Medicine; Referring Provider Emergency Medicine; Visit Provider Internal Medicine
DX: L04.2 Acute lymphadenitis of upper limb (principal); L03.113 Cellulitis of right upper limb; Z68.41 Body mass index [BMI] 40.0-44.9, adult; K50.90 Crohn's disease, unspecified, without complications; E66.01 Morbid (severe) obesity due to excess calories; I97.2 Postmastectomy lymphedema syndrome; E03.9 Hypothyroidism, unspecified; Z20.822 Contact with and (suspected) exposure to COVID-19; Z66 Do not resuscitate
CPT/HCPCS: 36415; 71045; 73201; 80048; 81001; 83605; 84443; 85025; 87040; 87086; 87635; 93971; 94760; 96361; 96365; 96367; 96372; 96375; 99284; 99285; C9803; A9270; J0696; J1170; J1200; J1650; J2405; J2765; Q9967